=== PATIENT | female | born 2000 | race Caucasian/White ===

== ENCOUNTER 2020-07-13 19:00 | Inpatient (IN) | payer OTHER ==
[2020-07-13] MEDS ORDERED: Misoprostol 50 MCG (1/2 of 100 MCG) Tab VAG ONE (19:15)
[2020-07-13] MEDS ORDERED: Sodium Chloride 0.9% 10 ML Syringe FLUSH PRN (19:16)
[2020-07-13] MEDS ORDERED: Lactated Ringers 500 ML IV SCH (20:00)
[2020-07-13] MEDS ORDERED: Lactated Ringers 1,000 ML IV ONE (20:44)
--- NOTE | 2020-07-13 21:01 | PCM.LDHP ---
L&D History of Present Illness - General Date of Service: 07/13/20 Admit Problem/Dx: Admission Diagnosis/Problem Admission Diagnosis/Problem Source of Information: Patient History Limitations: Reports: No Limitations - History of Present Illness Introduction:: 07/13/20 20 yo is here at 38 5/7 weeks for a planned induction (cervical ripening tonight, induction in am) due to poorly controlled GDM. She is currently on Metformin 500 mg BID for this. Her fasting blood sugar this last week has been very good between 80-90. Her post meals fluctuate a lot but are averaging 120, she did have one high one at 196 after "splurging". She is GBS neg, Hep B/C/HIV /RPR all NR. Rubella immune. A positive blood type. Her baby last measured 86% for growth last Saturday. Her Ar is here. Plan was to do cervical ripening but upon admission her strip was not reassuring. There were variable decelerations and it was difficult to differentiate between low baseline with high accelerations or high baseline with continued decelerations. So far it does appear that the baseline is generally 120 with accelerations but there are decelerations present. Fluids given, oxygen applied, patient turned and repositioned. No cervical ripening initiated at this time. US called in for BPP. Timing/Duration: Reports: intermittent Severity: Mild Improves with: Reports: None Worsens with: Reports: None Associated Symptoms: Denies: vaginal bleeding, vaginal fluid - Related Data Allergies/Adverse Reactions: Allergies Allergy/AdvReac Type Severity Reaction Status Date / Time No Known Allergies Allergy Verified 07/13/20 19:16 Home Medications: Home Meds Vits #93/Iron Fum/FA [ Formula Tablet] 1 tab PO DAILY 07/13/20 [History] Vit B6/L. 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: : 1 Para: 0 LMP (Approximate): Endocrine/Metabolic History: Reports: Diabetes, Gestational - Past Surgical History HEENT Surgical History: Reports: Oral Surgery Social & Family History - Family History Family Medical History: Noncontributory - Tobacco Use Smoking Status *Q: Never Smoker Second Hand Smoke Exposure: No - Caffeine Use Caffeine Use: Reports: None - Recreational Drug Use Recreational Drug Use: No H&P Review of Systems - Review of Systems: Review Of Systems: See Below General: Reports: No Symptoms HEENT: Reports: No Symptoms Pulmonary: Reports: No Symptoms Cardiovascular: Reports: No Symptoms Gastrointestinal: Reports: No Symptoms Genitourinary: Reports: No Symptoms Musculoskeletal: Reports: No Symptoms Skin: Reports: No Symptoms Psychiatric: Reports: No Symptoms Neurological: Reports: No Symptoms Hematologic/Lymphatic: Reports: No Symptoms Immunologic: Reports: No Symptoms L&D Exam - Exam Exam: See Below - Vital Signs Vital Signs: Last Vital Signs Temp 37.0 C 07/13/20 19:22 Pulse 102 H 07/13/20 19:22 Resp 18 07/13/20 19:22 BP 118/75 07/13/20 19:22 Pulse Ox 92 L 07/13/20 19:22 Weight: 96.4 kg - OB Specific Contraction Frequency (min): x1 Contraction Intensity: Mild Movement: Active Heart Tones: Present Heart Rate (FHR) Variability: Moderate (6-25 bmp) Presentation: Vertex Estimated Weight: 9 lbs - Exam General: Alert, Oriented HEENT: PERRLA, Conjunctiva Clear, EOMI, Hearing Intact, Mucosa Moist & [place], Nares Patent, Normal Nasal Septum, Posterior Pharynx Clear, Pupils Equal, Pupils Reactive Neck: Supple, Trachea Midline Lungs: Clear to Auscultation, Normal Respiratory Effort Cardiovascular: Regular Rate, Regular Rhythm, Normal S1, Normal S2 GI/Abdominal Exam: Normal Bowel Sounds, Soft, Non-Tender, No Organomegaly, No Distention, No Abnormal Bruit, No Mass, Pelvis Stable Rectal Exam: Normal Exam, Normal Rectal Tone Genitourinary: Normal external exam, Normal bimanual exam, Cervical dilitation, Enlarged uterus Back Exam: Normal Inspection, Full Range of Motion Extremities: Normal Inspection, Normal Range of Motion, Non-Tender, No Pedal Ed homero, Normal Capillary Refill Skin: Warm, Dry, Intact Neurological: Cranial Nerves Intact, Reflexes Equal Bilateral Psychiatric: Alert, Normal Affect, Normal Mood - Patient Data Lab Results Last 24 hrs: Laboratory Results - last 24 hr 07/13/20 07/13/20 07/13/20 Range/Units 19:15 19:26 19:28 WBC 9.9 (4.5-11.0) K/uL RBC 4.71 (3.30-5.50) M/uL Hgb 12.4 (12.0-15.0) g/dL Hct 38.0 (36.0-48.0) % MCV 81 (80-98) fL MCH 26 L (27-31) pg MCHC 33 (32-36) % Plt Count 226 (150-400) K/uL Neut % (Auto) 75 H (36-66) % Lymph % (Auto) 19 L (24-44) % Gage % (Auto) 5 (2-6) % Eos % (Auto) 1 L (2-4) % Baso % (Auto) 0 (0-1) % Urine Color Yellow (YELLOW) Urine Appearance Slightly cloudy A (CLEAR) Urine pH 6.5 (5.0-8.0) Ur Specific [place] >= 1.030 (1.008-1.030) Urine Protein Negative (NEGATIVE) mg/dL Urine Glucose (UA) Negative (NEGATIVE) mg/dL Urine Ketones Negative (NEGATIVE) mg/dL Urine Occult Blood Negative (NEGATIVE) Urine Nitrite Negative (NEGATIVE) Urine Bilirubin Negative (NEGATIVE) Urine Urobilinogen 0.2 (0.2-1.0) EU/dL Ur Leukocyte Esterase Negative (NEGATIVE) Urine RBC Not seen (0-5) Urine WBC 0-5 (0-5) Ur Epithelial Cells Moderate Amorphous Sediment Moderate Urine Bacteria Moderate Urine Mucus Not seen Urine Opiates Screen Negative (NEGATIVE) Ur Oxycodone Screen Negative (NEGATIVE) Urine Methadone Screen Negative (NEGATIVE) Ur Propoxyphene Screen Negative (NEGATIVE) Ur Barbiturates Screen Negative (NEGATIVE) Ur Tricyclics Screen Negative (NEGATIVE) Ur Phencyclidine Scrn Negative (NEGATIVE) Ur Amphetamine Screen Negative (NEGATIVE) U Methamphetamines Scrn Negative (NEGATIVE) Urine MDMA Screen Negative (NEGATIVE) U Benzodiazepines Scrn Negative (NEGATIVE) U Cocaine Metab Screen Negative (NEGATIVE) U Marijuana (THC) Screen Negative (NEGATIVE) Result Diagrams: 07/13/20 19:28 - Problem List (1) Gestational diabetes SNOMED Code(s): 18865835 ICD Code: O24.419 - GESTATIONAL DIABETES MELLITUS IN , UNSP CONTROL Status: Acute Current Visit: Yes (2) SNOMED Code(s): 29563549 ICD Code: Z34.90 - ENCNTR FOR SUPRVSN OF NORMAL , UNSP, UNSP TRIMESTER Status: Acute Current Visit: Yes Qualifiers: Weeks of gestation: 38 weeks Qualified Code(s): Z3A.38 - 38 weeks gestation of Problem List Initiated/Reviewed/Updated: Yes Orders Last 24hrs: Active Orders 24 hr Category Date Time Status BPP w NST [US] Stat Exams 07/13/20 20:24 Ordered Lactated Ringers [Ringers, Lactated] 1,000 ml Med 07/13/20 20:45 Ordered IV ASDIRECTED Lactated Ringers [Ringers, Lactated] 1,000 ml Med 07/13/20 20:44 Ordered IV BOLUS Lactated Ringers [Ringers, Lactated] 500 ml Med 07/13/20 20:00 Active IV .BOLUS Sodium Chloride 0.9% [Saline Flush] Med 07/13/20 19:16 Active 10 ml FLUSH ASDIRECTED PRN Saline Lock Insert [OM.PC] Routine Oth 07/13/20 19:16 Ordered Medication Orders Lactated Ringer's (Ringers, Lactated) 500 mls @ 500 mls/hr IV .BOLUS OUMOU Last Admin: 07/13/20 20:05 Dose: 500 mls/hr Documented by: KIRSTEN Lactated Ringer's (Ringers, Lactated) 1,000 mls @ 999 mls/hr IV BOLUS ONE Stop: 07/13/20 21:44 Lactated Ringer's (Ringers, Lactated) 1,000 mls @ 125 mls/hr IV ASDIRECTED [facility] Sodium Chloride (Saline Flush) 10 ml FLUSH ASDIRECTED PRN PRN Reason: Keep Vein Open Assessment/Plan Comment:: 07/13/20 Assessment: here for planned cervical ripening prior to labor induction at 38 5/7 due to poorly controlled GDM Last US showed growth at 86% GBS negative Difficult seeing if strip was low baseline of approx 110 (sometimes lower sometimes higher) with accelerations or a higher baseline with decelerations, BPP however is 8/8, great variability SVE 0 station, thin, cervix too posterior to reach Plan: No cytotec this evening due to difficulty reading strip Vistaril for sleep Fluid bolus done, fluids at 125 ml/hr overnight NST every 4 hours Plan will be to reassess and start induction in am
[2020-07-13] MEDS ORDERED: hydrOXYzine HCl 25 MG Tab PO ONE (21:25)
[2020-07-13] MEDS: Lactated Ringers 1,000 ML IV SCH (21:58)
[2020-07-14] MEDS: Lactated Ringers 1,000 ML IV SCH ×3 (06:38→22:10)
[2020-07-14] MEDS ORDERED: Lactated Ringers 1,000 ML IV ONE (07:20)
[2020-07-14] MEDS ORDERED: Naloxone 0.4 MG/ML SDV IVPUSH PRN (07:20)
[2020-07-14] MEDS ORDERED: diphenhydrAMINE 50 MG/ML SDV IVPUSH PRN ×2 (07:20)
[2020-07-14] MEDS ORDERED: Sodium Chloride 0.9% 10 ML Syringe FLUSH PRN (07:20)
[2020-07-14] MEDS ORDERED: ePHEDrine 50 MG/ML SDV IVPUSH PRN ×2 (07:20)
[2020-07-14] MEDS ORDERED: Ropivacaine 200 MG in Premix Bag 1 BAG EPIDUR SCH (07:30)
--- NOTE | 2020-07-14 08:25 | PCM.PNLD ---
Labor Progress Note - VS & Meds Vital Signs: Last Vital Signs Temp 36.2 C 07/14/20 07:40 Pulse 96 07/14/20 07:40 Resp 18 07/14/20 07:40 BP 118/66 07/14/20 07:40 Pulse Ox 97 07/14/20 07:40 Active Medications: Current Medications Diphenhydramine HCl (Benadryl) 25 mg IVPUSH Q6H PRN PRN Reason: Itching Diphenhydramine HCl (Benadryl) 50 mg IVPUSH Q6H PRN PRN Reason: Itching Ephedrine Sulfate (Ephedrine Sulfate) 10 mg IVPUSH ASDIRECTED PRN PRN Reason: Hypotension Lactated Ringer's (Ringers, Lactated) 1,000 mls @ 125 mls/hr IV ASDIRECTED [facility] Last Admin: 07/14/20 06:38 Dose: 125 mls/hr Documented by: Oxytocin/Sodium Chloride (Pitocin In Ns 20 Units/1,000 Ml) 20 unit in 1,000 mls @ 6 mls/hr IV TITRATE [facility]; Protocol Last Titration: 07/14/20 08:20 Dose: 4 munits/min, 12 mls/hr Documented by: Ropivacaine 200 mg/ Premix 100 mls @ 0 mls/hr EPIDUR ASDIRECTED [facility] Naloxone HCl (Narcan) 0.1 mg IVPUSH ASDIRECTED PRN PRN Reason: Oversedation Sodium Chloride (Saline Flush) 10 ml FLUSH ASDIRECTED PRN PRN Reason: Keep Vein Open Sodium Chloride (Saline Flush) 10 ml FLUSH ASDIRECTED PRN PRN Reason: Keep Vein Open Discontinued Medications Hydroxyzine HCl (Atarax) 50 mg PO ONETIME ONE Stop: 07/13/20 21:26 Last Admin: 07/13/20 21:58 Dose: 50 mg Documented by: Lactated Ringer's (Ringers, Lactated) 500 mls @ 500 mls/hr IV .BOLUS OUMOU Last Infusion: 07/13/20 20:10 Dose: 999 mls/hr Documented by: Lactated Ringer's (Ringers, Lactated) 1,000 mls @ 999 mls/hr IV BOLUS ONE Stop: 07/13/20 21:44 Last Infusion: 07/13/20 21:31 Dose: 125 mls/hr Documented by: Lactated Ringer's (Ringers, Lactated) 1,000 mls @ 999 mls/hr IV .BOLUS ONE Stop: 07/14/20 08:20 Misoprostol (Cytotec) 25 mcg VAG ONETIME ONE Stop: 07/13/20 19:16 Last Admin: 07/13/20 21:34 Dose: Not Given Documented by: - Uterine Contractions Uterine Monitoring Mode: External [place] Contraction Frequency (min): none Contraction Duration (sec): 60-70 Contraction Intensity: Mild Uterine Resting Tone: Soft - Monitoring Monitor Mode: External Ultrasound Heart Rate (FHR) Variability: Moderate (6-25 bmp) Accelerations: Present, 15x15 Decelerations: None Strip Review: Category I - Vaginal Exam Dilation (cm): 1 Effacement (Percent): 75 Station: 0 Cervical Position: Posterior Sterile Vaginal Exam Performed By: Sharri Bridges - Labor Progress (Free Text) Labor Progress: 07/14/2020 Patient slept most of night Occasional contraction noted SVE-posterior//0 FHTs category one Plan- Continue to monitor for active labor Continue to monitor FHTs Start pitocin per protocol Patient to take her own glucose levels Patient to take her own metformin Pain management per patient request Plan and anticipate a vaginal delivery
--- NOTE | 2020-07-14 10:19 | US ---
BPP w NST INDICATION: decelerations COMPARISON: Limited study 07/07/2020 FINDINGS: Single live IUP heart rate: 123 BPM. Biophysical profile score: 8/8. GISSELL: 10.4 cm. IMPRESSION: Normal biophysical profile score of 8/8.
[2020-07-14] MEDS ORDERED: Misoprostol 50 MCG (1/2 of 100 MCG) Tab VAG ONE (17:00)
--- NOTE | 2020-07-14 19:08 | PCM.PNLD ---
Labor Progress Note - VS & Meds Vital Signs: Last Vital Signs Temp 36.0 C L 07/14/20 18:48 Pulse 93 07/14/20 18:48 Resp 18 07/14/20 18:48 BP 126/63 07/14/20 18:48 Pulse Ox 94 L 07/14/20 18:48 Active Medications: Current Medications Diphenhydramine HCl (Benadryl) 25 mg IVPUSH Q6H PRN PRN Reason: Itching Diphenhydramine HCl (Benadryl) 50 mg IVPUSH Q6H PRN PRN Reason: Itching Ephedrine Sulfate (Ephedrine Sulfate) 10 mg IVPUSH ASDIRECTED PRN PRN Reason: Hypotension Lactated Ringer's (Ringers, Lactated) 1,000 mls @ 125 mls/hr IV ASDIRECTED [facility] Last Admin: 07/14/20 14:55 Dose: 125 mls/hr Documented by: Oxytocin/Sodium Chloride (Pitocin In Ns 20 Units/1,000 Ml) 20 unit in 1,000 mls @ 6 mls/hr IV TITRATE [facility]; Protocol Last Titration: 07/14/20 15:21 Dose: 0 munits/min, 0 mls/hr Documented by: Ropivacaine 200 mg/ Premix 100 mls @ 0 mls/hr EPIDUR ASDIRECTED [facility] Naloxone HCl (Narcan) 0.1 mg IVPUSH ASDIRECTED PRN PRN Reason: Oversedation Sodium Chloride (Saline Flush) 10 ml FLUSH ASDIRECTED PRN PRN Reason: Keep Vein Open Sodium Chloride (Saline Flush) 10 ml FLUSH ASDIRECTED PRN PRN Reason: Keep Vein Open Discontinued Medications Hydroxyzine HCl (Atarax) 50 mg PO ONETIME ONE Stop: 07/13/20 21:26 Last Admin: 07/13/20 21:58 Dose: 50 mg Documented by: Lactated Ringer's (Ringers, Lactated) 500 mls @ 500 mls/hr IV .BOLUS OUMOU Last Infusion: 07/13/20 20:10 Dose: 999 mls/hr Documented by: Lactated Ringer's (Ringers, Lactated) 1,000 mls @ 999 mls/hr IV BOLUS ONE Stop: 07/13/20 21:44 Last Infusion: 07/13/20 21:31 Dose: 125 mls/hr Documented by: Lactated Ringer's (Ringers, Lactated) 1,000 mls @ 999 mls/hr IV .BOLUS ONE Stop: 07/14/20 08:20 Misoprostol (Cytotec) 25 mcg VAG ONETIME ONE Stop: 07/13/20 19:16 Last Admin: 07/13/20 21:34 Dose: Not Given Documented by: Misoprostol (Cytotec) 50 mcg VAG ONETIME ONE Stop: 07/14/20 17:01 Last Admin: 07/14/20 17:27 Dose: 50 mcg Documented by: - Uterine Contractions Uterine Monitoring Mode: External [place] Contraction Frequency (min): 6 Contraction Duration (sec): 60-80 Contraction Intensity: Mild Uterine Resting Tone: Soft - Monitoring Monitor Mode: External Ultrasound Heart Rate (FHR) Variability: Moderate (6-25 bmp) Accelerations: Present, 15x15 Decelerations: None Strip Review: Category I - Vaginal Exam Dilation (cm): 1 Effacement (Percent): 75 Station: 0 Cervical Position: Posterior Sterile Vaginal Exam Performed By: Sharri Bridges Vaginal Exam Comment: closed inner os; placement of cytotec - Labor Progress (Free Text) Labor Progress: 07/14/2020 Patient is doing well, but progressing very slowly. Made decision to D/C pitocin earlier since strip is now a category one and contractions are not changing cervix. Patient educated on options and decision made to place cytotec vaginally. SVE-unchanged FHTs category one Patient not having any pain Plan- Will place one cytotec now vaginally, return four hours later and place a second cytotec per patient request to continue induction through night. Continue to monitor for active labor Continue to monitor FHTs Pain management per patient request Patient may eat regular diet Patient may be up ad kennedi Plan and anticipate a vaginal delivery
[2020-07-14] MEDS ORDERED: Misoprostol 25 MCG (1/4 of 100 MCG) Tab PO ONE (21:30)
[2020-07-14] MEDS ORDERED: hydrOXYzine HCl 25 MG Tab PO ONE (22:00)
[2020-07-15] MEDS ORDERED: Sodium Chloride 0.9% 10 ML Syringe FLUSH PRN (02:50)
[2020-07-15] MEDS ORDERED: Naloxone 0.4 MG/ML SDV IVPUSH PRN (02:50)
[2020-07-15] MEDS ORDERED: Ropivacaine 200 MG in Premix Bag 1 BAG EPIDUR SCH (03:00)
--- NOTE | 2020-07-15 04:10 | ANES ---
DATE OF SERVICE: 07/15/2020 INDICATIONS: Zarina is a 20-year-old female patient of Sharri Bridges in our obstetric unit with prolonged stage II labor. I was requested to consult the patient for labor epidural. Upon arrival I found a healthy 20-year-old female. I reviewed the patient's history and lab work. Discussed risks and benefits. She was okay to proceed. After no contraindications were found to labor epidural placement. Consent was received. TECHNIQUE: I had her seated at the edge of the bed. Betadine prep x3 to lumbar region. Sterile drape was placed, 1% lidocaine skin wheal as well as deep at the L3-L4 region. A 17- gauge Tuohy was placed to loss of resistance. Negative CSF, negative heme, negative paresthesia. I then inserted the catheter to 15 cm. The needle was removed. A test dose was given through the catheter, 3 mL of 1.5% lidocaine of 1:200,000 epinephrine with negative sequelae. I dosed her with 12 mL of 0.2% ropivacaine and began an infusion of that same 0.2% ropivacaine. She tolerated the procedure quite well. Please refer to nursing notes for vital signs and neuro status, which were unchanged and within normal limits. I reported off to the nurse. Gregory Rock CRNA /[id number]
[2020-07-15] MEDS ORDERED: Ropivacaine 100 ML ONE (04:12)
--- NOTE | 2020-07-15 06:21 | PCM.PNLD ---
Labor Progress Note - VS & Meds Vital Signs: Last Vital Signs Temp 36.3 C 07/15/20 03:45 Pulse 60 07/15/20 04:12 Resp 16 07/15/20 04:12 BP 103/57 L 07/15/20 04:12 Pulse Ox 96 07/15/20 04:12 Active Medications: Current Medications Diphenhydramine HCl (Benadryl) 25 mg IVPUSH Q6H PRN PRN Reason: Itching Diphenhydramine HCl (Benadryl) 50 mg IVPUSH Q6H PRN PRN Reason: Itching Ephedrine Sulfate (Ephedrine Sulfate) 10 mg IVPUSH ASDIRECTED PRN PRN Reason: Hypotension Lactated Ringer's (Ringers, Lactated) 1,000 mls @ 125 mls/hr IV ASDIRECTED OUMOU Last Admin: 07/14/20 22:10 Dose: 125 mls/hr Documented by: Oxytocin/Sodium Chloride (Pitocin In Ns 20 Units/1,000 Ml) 20 unit in 1,000 mls @ 6 mls/hr IV TITRATE [facility]; Protocol Last Titration: 07/15/20 05:56 Dose: 2 munits/min, 6 mls/hr Documented by: Ropivacaine 200 mg/ Premix 100 mls @ 0 mls/hr EPIDUR ASDIRECTED OUMOU Last Admin: 07/15/20 04:00 Dose: 12 mls/hr Documented by: Naloxone HCl (Narcan) 0.1 mg IVPUSH ASDIRECTED PRN PRN Reason: Oversedation Sodium Chloride (Saline Flush) 10 ml FLUSH ASDIRECTED PRN PRN Reason: Keep Vein Open Sodium Chloride (Saline Flush) 10 ml FLUSH ASDIRECTED PRN PRN Reason: Keep Vein Open Sodium Chloride (Saline Flush) 10 ml FLUSH ASDIRECTED PRN PRN Reason: Keep Vein Open Discontinued Medications Hydroxyzine HCl (Atarax) 50 mg PO ONETIME ONE Stop: 07/13/20 21:26 Last Admin: 07/13/20 21:58 Dose: 50 mg Documented by: Hydroxyzine HCl (Atarax) 50 mg PO ONETIME ONE Stop: 07/14/20 22:01 Last Admin: 07/14/20 22:10 Dose: 50 mg Documented by: Lactated Ringer's (Ringers, Lactated) 500 mls @ 500 mls/hr IV .BOLUS OUMOU Last Infusion: 07/13/20 20:10 Dose: 999 mls/hr Documented by: Lactated Ringer's (Ringers, Lactated) 1,000 mls @ 999 mls/hr IV BOLUS ONE Stop: 07/13/20 21:44 Last Infusion: 07/13/20 21:31 Dose: 125 mls/hr Documented by: Lactated Ringer's (Ringers, Lactated) 1,000 mls @ 999 mls/hr IV .BOLUS ONE Stop: 07/14/20 08:20 Last Admin: 07/15/20 02:40 Dose: 999 mls/hr Documented by: Ropivacaine 200 mg/ Premix 100 mls @ 0 mls/hr EPIDUR ASDIRECTED [facility] Ropivacaine (Naropin 0.2%) Confirm Administered Dose 100 mls @ as directed .ROUTE .STK-MED ONE Stop: 07/15/20 04:13 Misoprostol (Cytotec) 25 mcg VAG ONETIME ONE Stop: 07/13/20 19:16 Last Admin: 07/13/20 21:34 Dose: Not Given Documented by: Misoprostol (Cytotec) 50 mcg VAG ONETIME ONE Stop: 07/14/20 17:01 Last Admin: 07/14/20 17:27 Dose: 50 mcg Documented by: Misoprostol (Cytotec) 25 mcg PO ONETIME ONE Stop: 07/14/20 21:31 Last Admin: 07/14/20 21:30 Dose: 25 mcg Documented by: Naloxone HCl (Narcan) 0.1 mg IVPUSH ASDIRECTED PRN PRN Reason: Oversedation - Uterine Contractions Uterine Monitoring Mode: External [place] Contraction Frequency (min): 2.5-7 Contraction Duration (sec): 40-100 Contraction Intensity: Moderate to Strong Uterine Resting Tone: Soft - Monitoring Monitor Mode: External Ultrasound Heart Rate (FHR) Variability: Moderate (6-25 bmp) Accelerations: Present, 15x15 Decelerations: None Strip Review: Category I - Labor Progress (Free Text) Labor Progress: 07/14/2020 Patient SROM on her own, tolerating pain well per RN FHTs category one Plan- Continue to monitor labor Continue to monitor FHTs If no cervical change will start Pitocin at 0400 Epidural when patient desires Plan and anticipate a vaginal delivery
--- NOTE | 2020-07-15 06:26 | PCM.PNLD ---
Labor Progress Note - VS & Meds Vital Signs: Last Vital Signs Temp 36.3 C 07/15/20 03:45 Pulse 60 07/15/20 04:12 Resp 16 07/15/20 04:12 BP 103/57 L 07/15/20 04:12 Pulse Ox 96 07/15/20 04:12 Active Medications: Current Medications Diphenhydramine HCl (Benadryl) 25 mg IVPUSH Q6H PRN PRN Reason: Itching Diphenhydramine HCl (Benadryl) 50 mg IVPUSH Q6H PRN PRN Reason: Itching Ephedrine Sulfate (Ephedrine Sulfate) 10 mg IVPUSH ASDIRECTED PRN PRN Reason: Hypotension Lactated Ringer's (Ringers, Lactated) 1,000 mls @ 125 mls/hr IV ASDIRECTED OUMOU Last Admin: 07/14/20 22:10 Dose: 125 mls/hr Documented by: Oxytocin/Sodium Chloride (Pitocin In Ns 20 Units/1,000 Ml) 20 unit in 1,000 mls @ 6 mls/hr IV TITRATE [facility]; Protocol Last Titration: 07/15/20 05:56 Dose: 2 munits/min, 6 mls/hr Documented by: Ropivacaine 200 mg/ Premix 100 mls @ 0 mls/hr EPIDUR ASDIRECTED [facility] Last Admin: 07/15/20 04:00 Dose: 12 mls/hr Documented by: Naloxone HCl (Narcan) 0.1 mg IVPUSH ASDIRECTED PRN PRN Reason: Oversedation Sodium Chloride (Saline Flush) 10 ml FLUSH ASDIRECTED PRN PRN Reason: Keep Vein Open Sodium Chloride (Saline Flush) 10 ml FLUSH ASDIRECTED PRN PRN Reason: Keep Vein Open Sodium Chloride (Saline Flush) 10 ml FLUSH ASDIRECTED PRN PRN Reason: Keep Vein Open Discontinued Medications Hydroxyzine HCl (Atarax) 50 mg PO ONETIME ONE Stop: 07/13/20 21:26 Last Admin: 07/13/20 21:58 Dose: 50 mg Documented by: Hydroxyzine HCl (Atarax) 50 mg PO ONETIME ONE Stop: 07/14/20 22:01 Last Admin: 07/14/20 22:10 Dose: 50 mg Documented by: Lactated Ringer's (Ringers, Lactated) 500 mls @ 500 mls/hr IV .BOLUS OUMOU Last Infusion: 07/13/20 20:10 Dose: 999 mls/hr Documented by: Lactated Ringer's (Ringers, Lactated) 1,000 mls @ 999 mls/hr IV BOLUS ONE Stop: 07/13/20 21:44 Last Infusion: 07/13/20 21:31 Dose: 125 mls/hr Documented by: Lactated Ringer's (Ringers, Lactated) 1,000 mls @ 999 mls/hr IV .BOLUS ONE Stop: 07/14/20 08:20 Last Admin: 07/15/20 02:40 Dose: 999 mls/hr Documented by: Ropivacaine 200 mg/ Premix 100 mls @ 0 mls/hr EPIDUR ASDIRECTED [facility] Ropivacaine (Naropin 0.2%) Confirm Administered Dose 100 mls @ as directed .ROUTE .STK-MED ONE Stop: 07/15/20 04:13 Misoprostol (Cytotec) 25 mcg VAG ONETIME ONE Stop: 07/13/20 19:16 Last Admin: 07/13/20 21:34 Dose: Not Given Documented by: Misoprostol (Cytotec) 50 mcg VAG ONETIME ONE Stop: 07/14/20 17:01 Last Admin: 07/14/20 17:27 Dose: 50 mcg Documented by: Misoprostol (Cytotec) 25 mcg PO ONETIME ONE Stop: 07/14/20 21:31 Last Admin: 07/14/20 21:30 Dose: 25 mcg Documented by: Naloxone HCl (Narcan) 0.1 mg IVPUSH ASDIRECTED PRN PRN Reason: Oversedation - Uterine Contractions Uterine Monitoring Mode: External [place] Contraction Frequency (min): 2.5-7 Contraction Duration (sec): 40-100 Contraction Intensity: Moderate to Strong Uterine Resting Tone: Soft - Monitoring Monitor Mode: External Ultrasound Heart Rate (FHR) Variability: Moderate (6-25 bmp) Accelerations: Present, 15x15 Decelerations: None Strip Review: Category I - Vaginal Exam Dilation (cm): 6 Effacement (Percent): 80 Station: -1 Cervical Position: Midposition Sterile Vaginal Exam Performed By: Sharri Bridges - Labor Progress (Free Text) Labor Progress: 07/15/2020 Patient is now comfortable with epidural Patient progressing slowly since SROM SVE-/-1, alfred felt FHTs category one Contractions-every 3-4 minutes VSS Plan- Continue to monitor labor Continue to monitor FHTs Continue Pitocin per protocol Continue epidural per patient request Plan and anticipate a vaginal delivery
[2020-07-15] MEDS: Lactated Ringers 1,000 ML IV SCH (07:01)
[2020-07-15] MEDS ORDERED: Misoprostol 200 MCG Tab ONE (08:02)
[2020-07-15] MEDS ORDERED: Carboprost Tromethamine 250 MCG/1 ML Amp ONE (08:02)
[2020-07-15] MEDS ORDERED: Methylergonovine 0.2 MG/1 ML Amp ONE (08:05)
[2020-07-15] MEDS ORDERED: Docusate Sodium 100 MG Cap PO PRN (09:15)
[2020-07-15] MEDS ORDERED: Ibuprofen 200 MG Tab, 24 Tab Bulk Bottle PO PRN (09:15)
[2020-07-15] MEDS ORDERED: Benzocaine 20% Top Spray 56 GM Bottle TOP ONE (09:15)
[2020-07-15] MEDS ORDERED: Acetaminophen 325 MG Tab, 50 Tab Bulk Bottle PO PRN (09:15)
--- NOTE | 2020-07-15 09:37 | PCM.DEL ---
L & D Note - General Info Date of Service: 07/15/20 Mother's Due Date: 07/22/20 - Delivery Note Labor: Augmented by Oxytocin Cervical Ripening Method: Misoprostil Delivery Outcome: Livebirth Infant Delivery Method: Spontaneous Vaginal Delivery-Single Delivery Mode: Spontaneous Presentation: Left Occiput Anterior (SCOTT) Nuchal Cord: None Anesthesia Type: Epidural Episiotomy Type: None Laceration: 3rd Degree Suture type: Chromic Suture size: 3-0 Placenta: Intact, Spontaneous Cord: 3 Vessels Estimated Blood Loss: 250 Resuscitation Needed: No [place]: Bulb Syringe, Stimulated, [place] Used Provider: Sharri Bridges Score 1 min: 8 Score 5 min: 9 Second Stage Interventions: Reports: Second Nurse Assessed Progress of Descent, Second Nurse Reviewed Contraction Pattern, Second Nurse Reviewed Heart Tones, Encouragement Given, Pushing Effectively, Pushing, Left Side, Pushing, McRobert's Position, Pushing, Pulls Own Legs Back, Pushing, Stirrups/Leg Supports Delivery Comments (Free Text/Narrative):: 07/15/2020 20 yo delivered a viable female at 0803 on 07/15/2020 in SCOTT pos ition over an intact perineum. Patient had a tight perineum, so a second provider was brought in for a vacuum assist delivery. Vacuum was applied due to bleeding noted and variables in heart tones, and done through two contractions without a pop off. Then patient was able to push head out and shoulders came easily with no nuchal cord. Infant was then placed up on a prewarmed blanket on mothers abdomen, began to cry vigorously. was bulb suctioned, dried, and stimulated. Delayed cord clamping done for approximately 90 second, cord was then double clamped and cut by provider. then placed skin to skin with mother. APGARS-8/9, weight-7lbs, 4oz, length-19 inches. Placenta then came spontaneously, intact, EBL-250ml. Third degree laceration noted of perineum, repaired in usual fashion. No lacerations noted of labia, cervix, or rectum. Infant now skin to skin with mother of and both stable in labor and delivery room. Stages of labor- 1st stage:9443-0807 2nd stage:5995-5664 3rd stage: 2804-1765 - General Info Date of Service: 07/15/20 Functional Status: Reports: Pain Controlled - Review of Systems General: Reports: No Symptoms HEENT: Reports: No Symptoms Pulmonary: Reports: No Symptoms Cardiovascular: Reports: No Symptoms Gastrointestinal: Reports: No Symptoms Genitourinary: Reports: No Symptoms Musculoskeletal: Reports: No Symptoms Skin: Reports: No Symptoms Neurological: Reports: No Symptoms Psychiatric: Reports: No Symptoms - Patient Data Vitals - Most Recent: Last Vital Signs Temp 36.3 C 07/15/20 03:45 Pulse 68 07/15/20 07:03 Resp 16 07/15/20 07:03 BP 122/86 07/15/20 07:03 Pulse Ox 99 07/15/20 07:03 Weight - Most Recent: 96.4 kg I&O - Last 24 Hours: Intake & Output 07/14/20 07/15/20 07/15/20 22:59 06:59 14:59 Intake Total 3075 2046 Output Total 700 Balance 3075 1346 Med Orders - Current: Current Medications Diphenhydramine HCl (Benadryl) 25 mg IVPUSH Q6H PRN PRN Reason: Itching Diphenhydramine HCl (Benadryl) 50 mg IVPUSH Q6H PRN PRN Reason: Itching Ephedrine Sulfate (Ephedrine Sulfate) 10 mg IVPUSH ASDIRECTED PRN PRN Reason: Hypotension Lactated Ringer's (Ringers, Lactated) 1,000 mls @ 125 mls/hr IV ASDIRECTED [facility] Last Admin: 07/15/20 07:01 Dose: 125 mls/hr Documented by: Oxytocin/Sodium Chloride (Pitocin In Ns 20 Units/1,000 Ml) 20 unit in 1,000 mls @ 6 mls/hr IV TITRATE [facility]; Protocol Last Titration: 07/15/20 06:30 Dose: 4 munits/min, 12 mls/hr Documented by: Ropivacaine 200 mg/ Premix 100 mls @ 0 mls/hr EPIDUR ASDIRECTED [facility] Last Admin: 07/15/20 04:00 Dose: 12 mls/hr Documented by: Naloxone HCl (Narcan) 0.1 mg IVPUSH ASDIRECTED PRN PRN Reason: Oversedation Sodium Chloride (Saline Flush) 10 ml FLUSH ASDIRECTED PRN PRN Reason: Keep Vein Open Sodium Chloride (Saline Flush) 10 ml FLUSH ASDIRECTED PRN PRN Reason: Keep Vein Open Sodium Chloride (Saline Flush) 10 ml FLUSH ASDIRECTED PRN PRN Reason: Keep Vein Open Discontinued Medications Carboprost Tromethamine (Hemabate Ds) Confirm Administered Dose 250 mcg .ROUTE .STK-MED ONE Stop: 07/15/20 08:03 Hydroxyzine HCl (Atarax) 50 mg PO ONETIME ONE Stop: 07/13/20 21:26 Last Admin: 07/13/20 21:58 Dose: 50 mg Documented by: Hydroxyzine HCl (Atarax) 50 mg PO ONETIME ONE Stop: 07/14/20 22:01 Last Admin: 07/14/20 22:10 Dose: 50 mg Documented by: Lactated Ringer's (Ringers, Lactated) 500 mls @ 500 mls/hr IV .BOLUS [facility] Last Infusion: 07/13/20 20:10 Dose: 999 mls/hr Documented by: Lactated Ringer's (Ringers, Lactated) 1,000 mls @ 999 mls/hr IV BOLUS ONE Stop: 07/13/20 21:44 Last Infusion: 07/13/20 21:31 Dose: 125 mls/hr Documented by: Lactated Ringer's (Ringers, Lactated) 1,000 mls @ 999 mls/hr IV .BOLUS ONE Stop: 07/14/20 08:20 Last Admin: 07/15/20 02:40 Dose: 999 mls/hr Documented by: Ropivacaine 200 mg/ Premix 100 mls @ 0 mls/hr EPIDUR ASDIRECTED [facility] Ropivacaine (Naropin 0.2%) Confirm Administered Dose 100 mls @ as directed .ROUTE .STK-MED ONE Stop: 07/15/20 04:13 Methylergonovine Maleate (Methergine) Confirm Administered Dose 0.2 mg .ROUTE .STK-MED ONE Stop: 07/15/20 08:06 Misoprostol (Cytotec) 25 mcg VAG ONETIME ONE Stop: 07/13/20 19:16 Last Admin: 07/13/20 21:34 Dose: Not Given Documented by: Misoprostol (Cytotec) 50 mcg VAG ONETIME ONE Stop: 07/14/20 17:01 Last Admin: 07/14/20 17:27 Dose: 50 mcg Documented by: Misoprostol (Cytotec) 25 mcg PO ONETIME ONE Stop: 07/14/20 21:31 Last Admin: 07/14/20 21:30 Dose: 25 mcg Documented by: Misoprostol (Cytotec) Confirm Administered Dose 800 mcg .ROUTE .STK-MED ONE Stop: 07/15/20 08:03 Naloxone HCl (Narcan) 0.1 mg IVPUSH ASDIRECTED PRN PRN Reason: Oversedation - Exam General: Alert, Oriented, Cooperative HEENT: Pupils Equal, Pupils Reactive, EOMI, Mucous Membr. Moist/[place] Neck: Supple Lungs: Clear to Auscultation, Normal Respiratory Effort Cardiovascular: Regular Rate, Regular Rhythm GI/Abdominal Exam: Normal Bowel Sounds, Soft, Non-Tender, No Organomegaly, No Distention, No Abnormal Bruit, No Mass, Pelvis Stable (Female) Exam: Normal External Exam, Normal Speculum Exam, Normal Bimanual Exam, Enlarged Uterus, Vaginal Bleeding Back Exam: Normal Inspection, Full Range of Motion Extremities: Normal Inspection, Normal Range of Motion, Non-Tender, No Pedal Edema, Normal Capillary Refill Skin: Warm, Dry, Intact Wound/Incisions: Healing Well Neurological: No New Focal Deficit Psy/Mental Status: Alert, Normal Affect, Normal Mood - Problem List & Annotations (1) Vaginal delivery SNOMED Code(s): 472079727 Code(s): O80 - ENCOUNTER FOR FULL-TERM UNCOMPLICATED DELIVERY Status: Acute Current Visit: Yes (2) Third degree perineal laceration SNOMED Code(s): 70562397, 366849237 Code(s): O70.20 - THIRD DEGREE PERINEAL LACERATION DURING DELIVERY, UNSP Status: Acute Current Visit: Yes (3) () SNOMED Code(s): 127170609 Code(s): Z78.9 - OTHER SPECIFIED HEALTH STATUS Status: Acute Current Visit: Yes (4) Gestational diabetes SNOMED Code(s): 95193588 Code(s): O24.419 - GESTATIONAL DIABETES MELLITUS IN , UNSP CONTROL Status: Acute Current Visit: Yes Qualifiers: Trimester: third trimester - Problem List Review Problem List Initiated/Reviewed/Updated: Yes - My Orders Last 24 Hours: My Active Orders 07/14/20 14:00 Communication Order [RC] Click to Edit 07/15/20 Breakfast Regular Diet [DIET] 07/15/20 09:15 Patient Status [ADT] Routine May Shower [RC] ASDIRECTED Up ad Kya [RC] ASDIRECTED Vital Signs [RC] PFP Acetaminophen [Tylenol Bulk Bottle] See Dose Instructions PO Q4H PRN Benzocaine [Nxik-H-Yvuxvul 20% [place]] See Dose Instructions TOP ONETIME ONE Docusate Sodium [Colace] 100 mg PO BID PRN Ibuprofen [Motrin Bulk Bottle] 600 mg PO Q6H PRN Lanolin [Lansinoh HPA] 1 gm TOP ONETIME ONE witch Sanjana [Tucks] 1 pad TOP ONETIME ONE Assess Lochia [WOMSER] Per Unit Routine Assess Uterine Involution [WOMSER] Per Unit Routine Resuscitation Status Routine 07/15/20 09:17 Perineal Care [OM.PC] Per Unit Routine Sitz Bath [OM.PC] Per Unit Routine 07/15/20 09:18 Ice Therapy [OM.PC] Per Unit Routine 07/16/20 06:00 CBC WITH AUTO DIFF [HEME] Routine - Assessment Assessment:: 07/15/2020 20 yo delivered without complications Third degree laceration repaired GDM - Plan Plan:: 07/13/20 Assessment: here for planned cervical ripening prior to labor induction at 38 5/7 due to poorly controlled GDM Last US showed growth at 86% GBS negative Difficult seeing if strip was low baseline of approx 110 (sometimes lower sometimes higher) with accelerations or a higher baseline with decelerations, BPP however is 8/8, great variability SVE 0 station, thin, cervix too posterior to reach Plan: No cytotec this evening due to difficulty reading strip Vistaril for sleep Fluid bolus done, fluids at 125 ml/hr overnight NST every 4 hours Plan will be to reassess and start induction in am 07/15/2020 Routine cares Support and encourage Good perineal care-ice, tucks, sitz baths Discharge in 48 hrs Stool softeners to be started
[2020-07-15] MEDS ORDERED: Lanolin 100% Cream 40 GM Tube TOP ONE (09:45)
[2020-07-15] MEDS ORDERED: Witch Hazel Medicated Pads 100/Jar TOP ONE (09:45)
[2020-07-15] MEDS ORDERED: Witch Hazel Medicated Pads 100/Jar TOP PRN (12:00)
[2020-07-15] MEDS ORDERED: Lanolin 100% Cream 40 GM Tube TOP PRN (12:00)
[2020-07-15] MEDS ORDERED: Benzocaine 20% Top Spray 56 GM Bottle TOP PRN (13:30)
--- NOTE | 2020-07-16 10:04 | PCM.PNPP ---
- General Info Date of Service: 07/16/20 Admission Dx/Problem (Free Text): Admission Diagnosis/Problem Admission Diagnosis/Problem Functional Status: Reports: Pain Controlled - Review of Systems General: Reports: No Symptoms HEENT: Reports: No Symptoms Pulmonary: Reports: No Symptoms Cardiovascular: Reports: No Symptoms Gastrointestinal: Reports: No Symptoms Genitourinary: Reports: No Symptoms Musculoskeletal: Reports: No Symptoms Skin: Reports: No Symptoms Neurological: Reports: No Symptoms Psychiatric: Reports: No Symptoms - General Info Date of Service: 07/16/20 - Patient Data Vital Signs - Most Recent: Last Vital Signs Temp 96.3 F L 07/16/20 08:24 Pulse 83 07/16/20 08:24 Resp 18 07/16/20 08:24 BP 118/72 07/16/20 08:24 Pulse Ox 98 07/16/20 08:24 Weight - Most Recent: 212 lb 8.41 oz Lab Results - Last 24 Hours: Laboratory Results - last 24 hr 07/16/20 Range/Units 06:00 WBC 9.1 (4.5-11.0) K/uL RBC 3.83 (3.30-5.50) M/uL Hgb 9.8 L D (12.0-15.0) g/dL Hct 31.6 L (36.0-48.0) % MCV 83 (80-98) fL MCH 26 L (27-31) pg MCHC 31 L (32-36) % Plt Count 161 (150-400) K/uL Neut % (Auto) 74 H (36-66) % Lymph % (Auto) 21 L (24-44) % [place] % (Auto) 4 (2-6) % Eos % (Auto) 1 L (2-4) % Baso % (Auto) 0 (0-1) % Med Orders - Current: Current Medications Acetaminophen (Tylenol Bulk Bottle) 0 mg PO Q4H PRN PRN Reason: Pain Last Admin: 07/15/20 14:46 Dose: 325 mg Documented by: Benzocaine (Klhx-H-Ewpqaos 20% Viola) 0 gm TOP Q4H PRN PRN Reason: JOSE PAIN Diphenhydramine HCl (Benadryl) 25 mg IVPUSH Q6H PRN PRN Reason: Itching Diphenhydramine HCl (Benadryl) 50 mg IVPUSH Q6H PRN PRN Reason: Itching Docusate Sodium (Colace) 100 mg PO BID PRN PRN Reason: Constipation Emollient Ointment (Lansinoh Hpa) 0 gm TOP ASDIRECTED PRN PRN Reason: Ephedrine Sulfate (Ephedrine Sulfate) 10 mg IVPUSH ASDIRECTED PRN PRN Reason: Hypotension Ferrous Sulfate (Ferrous Sulfate) 325 mg PO BIDMEALS [facility] Lactated Ringer's (Ringers, Lactated) 1,000 mls @ 125 mls/hr IV ASDIRECTED [facility] Last Admin: 07/15/20 07:01 Dose: 125 mls/hr Documented by: Oxytocin/Sodium Chloride (Pitocin In Ns 20 Units/1,000 Ml) 20 unit in 1,000 mls @ 6 mls/hr IV TITRATE [facility]; Protocol Last Titration: 07/15/20 06:30 Dose: 4 munits/min, 12 mls/hr Documented by: Ropivacaine 200 mg/ Premix 100 mls @ 0 mls/hr EPIDUR ASDIRECTED [facility] Last Admin: 07/15/20 04:00 Dose: 12 mls/hr Documented by: Ibuprofen (Motrin Bulk Bottle) 600 mg PO Q6H PRN PRN Reason: Pain Last Admin: 07/15/20 14:46 Dose: 600 mg Documented by: Naloxone HCl (Narcan) 0.1 mg IVPUSH ASDIRECTED PRN PRN Reason: Oversedation Sodium Chloride (Saline Flush) 10 ml FLUSH ASDIRECTED PRN PRN Reason: Keep Vein Open Witch Jennifer (Tucks) 1 pad TOP ASDIRECTED PRN PRN Reason: HEMMROIDS Discontinued Medications Benzocaine (Ajrz-J-Cwmcuog 20% Viola) 0 gm TOP ONETIME ONE Stop: 07/15/20 09:16 Last Admin: 07/15/20 14:44 Dose: 1 spray Documented by: Carboprost Tromethamine (Hemabate Ds) Confirm Administered Dose 250 mcg .ROUTE .STK-MED ONE Stop: 07/15/20 08:03 Last Admin: 07/15/20 14:05 Dose: Not Given Documented by: Emollient Ointment (Lansinoh Hpa) 0 gm TOP ONETIME ONE Stop: 07/15/20 09:46 Last Admin: 07/15/20 14:45 Dose: 40 gm Documented by: Hydroxyzine HCl (Atarax) 50 mg PO ONETIME ONE Stop: 07/13/20 21:26 Last Admin: 07/13/20 21:58 Dose: 50 mg Documented by: Hydroxyzine HCl (Atarax) 50 mg PO ONETIME ONE Stop: 07/14/20 22:01 Last Admin: 07/14/20 22:10 Dose: 50 mg Documented by: Lactated Ringer's (Ringers, Lactated) 500 mls @ 500 mls/hr IV .BOLUS [facility] Last Infusion: 07/13/20 20:10 Dose: 999 mls/hr Documented by: Lactated Ringer's (Ringers, Lactated) 1,000 mls @ 999 mls/hr IV BOLUS ONE Stop: 07/13/20 21:44 Last Infusion: 07/13/20 21:31 Dose: 125 mls/hr Documented by: Lactated Ringer's (Ringers, Lactated) 1,000 mls @ 999 mls/hr IV .BOLUS ONE Stop: 07/14/20 08:20 Last Admin: 07/15/20 02:40 Dose: 999 mls/hr Documented by: Ropivacaine 200 mg/ Premix 100 mls @ 0 mls/hr EPIDUR ASDIRECTED [facility] Ropivacaine (Naropin 0.2%) Confirm Administered Dose 100 mls @ as directed .ROUTE .STK-MED ONE Stop: 07/15/20 04:13 Methylergonovine Maleate (Methergine) Confirm Administered Dose 0.2 mg .ROUTE .STK-MED ONE Stop: 07/15/20 08:06 Last Admin: 07/15/20 14:05 Dose: Not Given Documented by: Misoprostol (Cytotec) 25 mcg VAG ONETIME ONE Stop: 07/13/20 19:16 Last Admin: 07/13/20 21:34 Dose: Not Given Documented by: Misoprostol (Cytotec) 50 mcg VAG ONETIME ONE Stop: 07/14/20 17:01 Last Admin: 07/14/20 17:27 Dose: 50 mcg Documented by: Misoprostol (Cytotec) 25 mcg PO ONETIME ONE Stop: 07/14/20 21:31 Last Admin: 07/14/20 21:30 Dose: 25 mcg Documented by: Misoprostol (Cytotec) Confirm Administered Dose 800 mcg .ROUTE .STK-MED ONE Stop: 07/15/20 08:03 Last Admin: 07/15/20 14:05 Dose: Not Given Documented by: Naloxone HCl (Narcan) 0.1 mg IVPUSH ASDIRECTED PRN PRN Reason: Oversedation Sodium Chloride (Saline Flush) 10 ml FLUSH ASDIRECTED PRN PRN Reason: Keep Vein Open Sodium Chloride (Saline Flush) 10 ml FLUSH ASDIRECTED PRN PRN Reason: Keep Vein Open Witch Jennifer (Tucks) 1 pad TOP ONETIME ONE Stop: 07/15/20 09:46 Last Admin: 07/15/20 14:45 Dose: 1 pad Documented by: - Interaction Infant Disposition, : [place] in Room with Family Interaction: Holding Feeding: Attempted ; Nursed Fair/Poor Support Person: - Recovery Exam Fundal Tone: Firm Fundal Level: 1 Fingerbreadths Below Umbilicus Fundal Placement: Midline Lochia Amount: Small Lochia Color: Rubra/Red Perineum Description: Edematous, Hemorrhoids Other Perinuem Description: digital exam repair intact, good rectal tone Episiotomy/Laceration: Approximated Bladder Status: Voiding Urinary Elimination: Not Voiding - Exam General: Alert, Oriented HEENT: Pupils Equal Lungs: Clear to Auscultation Cardiovascular: Regular Rate, Regular Rhythm GI/Abdominal Exam: Soft Extremities: No Pedal Edema, Normal Capillary Refill Skin: Warm Wound/Incisions: Healing Well Neurological: No New Focal Deficit Psy/Mental Status: Alert, Normal Affect, Normal Mood - Problem List & Annotations (1) Anemia due to blood loss, acute SNOMED Code(s): 129445269 Code(s): D62 - ACUTE POSTHEMORRHAGIC ANEMIA Status: Acute Current Visit: Yes (2) Gestational diabetes SNOMED Code(s): 01133971 Code(s): O24.419 - GESTATIONAL DIABETES MELLITUS IN , UNSP CONTROL Status: Acute Current Visit: Yes Qualifiers: Trimester: third trimester (3) SNOMED Code(s): 18999239 Code(s): Z34.90 - ENCNTR FOR SUPRVSN OF NORMAL , UNSP, UNSP TRIMESTER Status: Acute Current Visit: Yes Qualifiers: Weeks of gestation: 38 weeks Qualified Code(s): Z3A.38 - 38 weeks gestation of (4) Vaginal delivery SNOMED Code(s): 777732213 Code(s): O80 - ENCOUNTER FOR FULL-TERM UNCOMPLICATED DELIVERY Status: Acute Current Visit: Yes (5) Third degree perineal laceration SNOMED Code(s): 53361132, 899308293 Code(s): O70.20 - THIRD DEGREE PERINEAL LACERATION DURING DELIVERY, UNSP Status: Acute Current Visit: Yes (6) () SNOMED Code(s): 802585982 Code(s): Z78.9 - OTHER SPECIFIED HEALTH STATUS Status: Acute Current Visit: Yes - Problem List Review Problem List Initiated/Reviewed/Updated: Yes - My Orders Last 24 Hours: My Active Orders 07/16/20 10:00 Ferrous Sulfate 325 mg PO BIDMEALS - Assessment Assessment:: 07/15/2020 20 yo delivered without complications Third degree laceration repaired GDM 07/16/20 Mood happy, parents in [place] no close family. 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 voiding without difficulty Repair intact no hematoma hgb 9.8, iron started today off GDM medication, continue to check blood sugar daily - Plan Plan:: 07/13/20 Assessment: here for planned cervical ripening prior to labor induction at 38 5/7 due to poorly controlled GDM Last US showed growth at 86% GBS negative Difficult seeing if strip was low baseline of approx 110 (sometimes lower sometimes higher) with accelerations or a higher baseline with decelerations, BPP however is 8/8, great variability SVE 0 station, thin, cervix too posterior to reach Plan: No cytotec this evening due to difficulty reading strip Vistaril for sleep Fluid bolus done, fluids at 125 ml/hr overnight NST every 4 hours Plan will be to reassess and start induction in am 07/15/2020 Routine cares Support and encourage Good perineal care-ice, tucks, sitz baths Discharge in 48 hrs Stool softeners to be started 07/16/20 Continue routine care work on iron started Stool softeners on a give schedule discharge 24-48 hours
[2020-07-16] MEDS: Ferrous Sulfate 325 MG Tab PO SCH ×2 (14:15→18:17)
[2020-07-16] MEDS: Docusate Sodium 100 MG Cap PO SCH (21:35)
--- NOTE | 2020-07-17 09:40 | PCM.PNPP ---
- General Info Date of Service: 07/17/20 (PDD 2 D/C) Admission Dx/Problem (Free Text): Admission Diagnosis/Problem Admission Diagnosis/Problem Functional Status: Reports: Pain Controlled, Tolerating Diet, Ambulating, Urinating - Review of Systems General: Reports: No Symptoms HEENT: Reports: No Symptoms Pulmonary: Reports: No Symptoms Cardiovascular: Reports: No Symptoms Gastrointestinal: Reports: No Symptoms Genitourinary: Reports: No Symptoms Musculoskeletal: Reports: No Symptoms Skin: Reports: No Symptoms Neurological: Reports: No Symptoms Psychiatric: Reports: No Symptoms - General Info Date of Service: 07/17/20 - Patient Data Vital Signs - Most Recent: Last Vital Signs Temp 98.8 F 07/17/20 08:10 Pulse 70 07/17/20 08:10 Resp 18 07/17/20 08:10 BP 110/68 07/17/20 08:10 Pulse Ox 98 07/17/20 08:10 Weight - Most Recent: 212 lb 8.41 oz I&O - Last 24 Hours: Intake & Output 07/16/20 07/17/20 07/17/20 22:59 06:59 14:59 Intake Total 1000 Balance 1000 Med Orders - Current: Current Medications Acetaminophen (Tylenol Bulk Bottle) 0 mg PO Q4H PRN PRN Reason: Pain Last Admin: 07/15/20 14:46 Dose: 325 mg Documented by: Benzocaine (Ovzg-Y-Erejylz 20% Marana) 0 gm TOP Q4H PRN PRN Reason: JOSE PAIN Diphenhydramine HCl (Benadryl) 25 mg IVPUSH Q6H PRN PRN Reason: Itching Diphenhydramine HCl (Benadryl) 50 mg IVPUSH Q6H PRN PRN Reason: Itching Docusate Sodium (Colace) 100 mg PO BID [facility] Last Admin: 07/16/20 21:35 Dose: 100 mg Documented by: Emollient Ointment (Lansinoh Hpa) 0 gm TOP ASDIRECTED PRN PRN Reason: Ephedrine Sulfate (Ephedrine Sulfate) 10 mg IVPUSH ASDIRECTED PRN PRN Reason: Hypotension Ferrous Sulfate (Ferrous Sulfate) 325 mg PO BIDMEALS [facility] Last Admin: 07/16/20 18:17 Dose: 325 mg Documented by: Lactated Ringer's (Ringers, Lactated) 1,000 mls @ 125 mls/hr IV ASDIRECTED OUMOU Last Admin: 07/15/20 07:01 Dose: 125 mls/hr Documented by: Oxytocin/Sodium Chloride (Pitocin In Ns 20 Units/1,000 Ml) 20 unit in 1,000 mls @ 6 mls/hr IV TITRATE OUMOU; Protocol Last Titration: 07/15/20 06:30 Dose: 4 munits/min, 12 mls/hr Documented by: Ropivacaine 200 mg/ Premix 100 mls @ 0 mls/hr EPIDUR ASDIRECTED OUMOU Last Admin: 07/15/20 04:00 Dose: 12 mls/hr Documented by: Ibuprofen (Motrin Bulk Bottle) 600 mg PO Q6H PRN PRN Reason: Pain Last Admin: 07/15/20 14:46 Dose: 600 mg Documented by: Naloxone HCl (Narcan) 0.1 mg IVPUSH ASDIRECTED PRN PRN Reason: Oversedation Sodium Chloride (Saline Flush) 10 ml FLUSH ASDIRECTED PRN PRN Reason: Keep Vein Open Witcarlyn Rodriguez (Tucks) 1 pad TOP ASDIRECTED PRN PRN Reason: HEMMROIDS Discontinued Medications Benzocaine (Iled-L-Nowanch 20% Marana) 0 gm TOP ONETIME ONE Stop: 07/15/20 09:16 Last Admin: 07/15/20 14:44 Dose: 1 spray Documented by: Carboprost Tromethamine (Hemabate Ds) Confirm Administered Dose 250 mcg .ROUTE .STK-MED ONE Stop: 07/15/20 08:03 Last Admin: 07/15/20 14:05 Dose: Not Given Documented by: Docusate Sodium (Colace) 100 mg PO BID PRN PRN Reason: Constipation Last Admin: 07/16/20 14:15 Dose: 100 mg Documented by: Emollient Ointment (Lansinoh Hpa) 0 gm TOP ONETIME ONE Stop: 07/15/20 09:46 Last Admin: 07/15/20 14:45 Dose: 40 gm Documented by: Hydroxyzine HCl (Atarax) 50 mg PO ONETIME ONE Stop: 07/13/20 21:26 Last Admin: 07/13/20 21:58 Dose: 50 mg Documented by: Hydroxyzine HCl (Atarax) 50 mg PO ONETIME ONE Stop: 07/14/20 22:01 Last Admin: 07/14/20 22:10 Dose: 50 mg Documented by: Lactated Ringer's (Ringers, Lactated) 500 mls @ 500 mls/hr IV .BOLUS OUMOU Last Infusion: 07/13/20 20:10 Dose: 999 mls/hr Documented by: Lactated Ringer's (Ringers, Lactated) 1,000 mls @ 999 mls/hr IV BOLUS ONE Stop: 07/13/20 21:44 Last Infusion: 07/13/20 21:31 Dose: 125 mls/hr Documented by: Lactated Ringer's (Ringers, Lactated) 1,000 mls @ 999 mls/hr IV .BOLUS ONE Stop: 07/14/20 08:20 Last Admin: 07/15/20 02:40 Dose: 999 mls/hr Documented by: Ropivacaine 200 mg/ Premix 100 mls @ 0 mls/hr EPIDUR ASDIRECTED OUMOU Ropivacaine (Naropin 0.2%) Confirm Administered Dose 100 mls @ as directed .ROUTE .STK-MED ONE Stop: 07/15/20 04:13 Methylergonovine Maleate (Methergine) Confirm Administered Dose 0.2 mg .ROUTE .S TK-MED ONE Stop: 07/15/20 08:06 Last Admin: 07/15/20 14:05 Dose: Not Given Documented by: Misoprostol (Cytotec) 25 mcg VAG ONETIME ONE Stop: 07/13/20 19:16 Last Admin: 07/13/20 21:34 Dose: Not Given Documented by: Misoprostol (Cytotec) 50 mcg VAG ONETIME ONE Stop: 07/14/20 17:01 Last Admin: 07/14/20 17:27 Dose: 50 mcg Documented by: Misoprostol (Cytotec) 25 mcg PO ONETIME ONE Stop: 07/14/20 21:31 Last Admin: 07/14/20 21:30 Dose: 25 mcg Documented by: Misoprostol (Cytotec) Confirm Administered Dose 800 mcg .ROUTE .STK-MED ONE Stop: 07/15/20 08:03 Last Admin: 07/15/20 14:05 Dose: Not Given Documented by: Naloxone HCl (Narcan) 0.1 mg IVPUSH ASDIRECTED PRN PRN Reason: Oversedation Sodium Chloride (Saline Flush) 10 ml FLUSH ASDIRECTED PRN PRN Reason: Keep Vein Open Sodium Chloride (Saline Flush) 10 ml FLUSH ASDIRECTED PRN PRN Reason: Keep Vein Open Sydnee Rodriguez (Tucks) 1 pad TOP ONETIME ONE Stop: 07/15/20 09:46 Last Admin: 07/15/20 14:45 Dose: 1 pad Documented by: - Infant Interaction Infant Disposition, : [place] in Room with Family Interaction: Holding Infant Feeding: Attempted ; Nursed Fair/Poor Support Person: - Recovery Exam Fundal Tone: Firm Fundal Level: 1 Fingerbreadths Below Umbilicus Fundal Placement: Midline Lochia Amount: Small Lochia Color: Rubra/Red Perineum Description: Edematous Other Perinuem Description: digital exam repair intact, good rectal tone Episiotomy/Laceration: Approximated Bladder Status: Voiding Urinary Elimination: Not Voiding Other Urinary Elimination, : Had a BM and it's wasn't painful - Exam General: Alert, Oriented HEENT: Pupils Equal, Pupils Reactive, Mucous Membr. Moist/[place] Neck: Supple Lungs: Normal Respiratory Effort Cardiovascular: Regular Rate, Regular Rhythm GI/Abdominal Exam: Soft, Non-Tender Extremities: No Pedal Edema, Normal Capillary Refill Skin: Warm, Dry, Intact Wound/Incisions: Healing Well Neurological: No New Focal Deficit Psy/Mental Status: Alert, Normal Affect, Normal Mood - Problem List & Annotations (1) Anemia due to blood loss, acute SNOMED Code(s): 765882738 Code(s): D62 - ACUTE POSTHEMORRHAGIC ANEMIA Status: Acute Current Visit: Yes (2) Gestational diabetes SNOMED Code(s): 27046428 Code(s): O24.419 - GESTATIONAL DIABETES MELLITUS IN , UNSP CONTROL Status: Acute Current Visit: Yes Qualifiers: Trimester: third trimester (3) SNOMED Code(s): 64672649 Code(s): Z34.90 - ENCNTR FOR SUPRVSN OF NORMAL , UNSP, UNSP TRIMESTER Status: Acute Current Visit: Yes Qualifiers: Weeks of gestation: 38 weeks Qualified Code(s): Z3A.38 - 38 weeks gestation of (4) Vaginal delivery SNOMED Code(s): 501611589 Code(s): O80 - ENCOUNTER FOR FULL-TERM UNCOMPLICATED DELIVERY Status: Acute Current Visit: Yes (5) Third degree perineal laceration SNOMED Code(s): 56485668, 849699980 Code(s): O70.20 - THIRD DEGREE PERINEAL LACERATION DURING DELIVERY, UNSP Status: Acute Current Visit: Yes (6) () SNOMED Code(s): 926667086 Code(s): Z78.9 - OTHER SPECIFIED HEALTH STATUS Status: Acute Current Visit: Yes - Problem List Review Problem List Initiated/Reviewed/Updated: Yes - My Orders Last 24 Hours: My Active Orders 07/16/20 10:00 Ferrous Sulfate 325 mg PO BIDMEALS 07/16/20 21:00 Docusate Sodium [Colace] 100 mg PO BID - Assessment Assessment:: 07/15/2020 20 yo delivered without complications Third degree laceration repaired GDM 07/16/20 Mood happy, parents in [place] no close family. 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 voiding without difficulty Repair intact no hematoma hgb 9.8, iron started today off GDM medication, continue to check blood sugar daily 07/17/20 Happy and wants to go home without a problem voiding flow light BM without pain - Plan Plan:: 07/13/20 Assessment: here for planned cervical ripening prior to labor induction at 38 5/7 due to poorly controlled GDM Last US showed growth at 86% GBS negative Difficult seeing if strip was low baseline of approx 110 (sometimes lower sometimes higher) with accelerations or a higher baseline with decelerations, BPP however is 8/8, great variability SVE 0 station, thin, cervix too posterior to reach Plan: No cytotec this evening due to difficulty reading strip Vistaril for sleep Fluid bolus done, fluids at 125 ml/hr overnight NST every 4 hours Plan will be to reassess and start induction in am 07/15/2020 Routine cares Support and encourage Good perineal care-ice, tucks, sitz baths Discharge in 48 hrs Stool softeners to be started 07/16/20 Continue routine care work on iron started Stool softeners on a give schedule discharge 24-48 hours 07/17/20 Home today See Sharri in 6 weeks for a post visit. reviewed self cares: breasts care, bottom care no sex until after post visit
[2020-07-17] MEDS: Ferrous Sulfate 325 MG Tab PO SCH (10:12)
[2020-07-17] MEDS: Docusate Sodium 100 MG Cap PO SCH (10:12)
== END 2020-07-17 11:48 | disposition home or self-care (01) | DRG 768 ==
LOC: JP.OB 19:00 → OBSVTOIN 07-15 08:06 → JP.MS 07-15 14:57
PROVIDERS: ADMIT Advanced Practice Midwife; ATTEND Advanced Practice Midwife
PROC: 10E0XZZ Delivery of Products of Conception, External Approach (ICD-10-PCS; principal; 2020-07-15)
PROC: 0DQR0ZZ Repair Anal Sphincter, Open Approach (ICD-10-PCS; 2020-07-15)
PROC: 3E0P7VZ Introduction of Hormone into Female Reproductive, Via Natural or Artificial Opening (ICD-10-PCS; 2020-07-15)
DX: O24.429 Gestational diabetes mellitus in childbirth, unspecified control (principal); Z37.0 Single live birth; O70.20 Third degree perineal laceration during delivery, unspecified; Z3A.38 38 weeks gestation of pregnancy; O76 Abnormality in fetal heart rate and rhythm complicating labor and delivery
CPT/HCPCS: 36415; 51702; 59409; 76818; 76818-26; 80305-QW; 81001; 85025; A9270-GY; J2590; J2795; J7120